=== PATIENT | male | born 1980 | race Caucasian/White ===

== ENCOUNTER 2024-12-09 14:43 | Outpatient (CLI) | payer OTHER, SELFPAY ==
--- NOTE | ~2024-12-09 | MR_ITS ---
EXAMINATION: MR brain/brain stem wo con DATE: 12/09/2024 15:24 INDICATION: Vision disturbance TECHNIQUE: Magnetic resonance imaging (MRI) of the brain and brainstem was performed without intraven ous contrast. Sequences included sagittal and axial T1-weighted SE, axial diffusion-weighted FS SE, a xial T2*-weighted GRE, axial T2-weighted FLAIR, and axial T2-weighted FSE. Apparent diffusion coeffic ient (ADC) maps were created. COMPARISON: None. FINDINGS: There are no areas of restricted diffusion to suggest acute infarction. No intracranial hemorrhage or abnormal intracranial mass lesion. Small nonspecific focus of increased T2 hyperintensity in the rig ht frontal periventricular white matter which is within normal limits. There are no intraparenchymal signal abnormalities seen on the other pulse sequences. The ventricles are symmetric and normal in si ze. There are no abnormal extra-axial fluid collections. Flow voids are seen in the cerebral arteries on the T2-weighted sequences consistent with their expected patency. Moderate mucosal thickening in the right maxillary sinus. Visualized orbits and soft tissues are unremarkable. IMPRESSION: 1. Normal for age brain. No acute intracranial process. Reviewed, dictated and finalized at location B.
== END 2024-12-09 14:44 | disposition home or self-care (01) ==
LOC: MICIMG 14:43
PROVIDERS: PCP Family Medicine; Visit Provider Family Medicine
DX: H53.9 Unspecified visual disturbance (principal)
CPT/HCPCS: 70551

== ENCOUNTER 2025-05-20 11:27 | Outpatient (CLI) | payer OTHER, SELFPAY ==
--- NOTE | ~2025-05-20 | CT_ITS ---
Exam: CT chest without contrast Clinical History: [Nodules. COPD. Emphysema. Dilated ascending aorta ] Comparison: [ None available] Technique: Multiple axial CT images of the chest without with IV contrast. Sagittal and coronal reformatted images were obtained. FINDINGS: Lungs and pleura: [ Tracheobronchial tree is patent. No pneumothorax. No pulmonary mass. Moderate centrilobular emphysema in the upper lobes.] There is an 8 mm pulmonary nodule in the right middle lobe along the minor fissure. There is a 4 mm pulmonary nodule in the right upper lobe. Mediastinum and pulmonary farhana: [ No mass or adenopathy.] Calcified nonenlarged right hilar lymph node. Axillary/intramammary and supraclavicular: [ No mass or adenopathy.] Heart and great vessels: [ Normal heart size.[ [ No pericardial effusion.] [ No aneurysm.] There are a few coronary artery calcifications. Chest Wall: [ Unremarkable.] Upper Abdomen: Fatty liver. Osseous structures: [ No acute fracture or destructive lesion.] [ Multilevel degenerative change in the visualized spine.] Additional findings: [ None of significance.] IMPRESSION: 1. There is an 8 mm pulmonary nodule in the right middle lobe along the minor fissure. A PET/CT and/or biopsy is recommended. 2. There is a 4 mm pulmonary nodule in the right upper lobe. A follow-up chest CT in 6 months is recommended. 3. Moderate centrilobular emphysema in the upper lobes. 4. Fatty liver. Reviewed, dictated and finalized at location Q. IMPRESSION: 1. There is an 8 mm pulmonary nodule in the right middle lobe along the minor f issure. A PET/CT and/or biopsy is recommended. 2. There is a 4 mm pulmonary nodule in the right upper lobe. A follow-up chest CT in 6 months is recommended. 3. Moderate centrilobular emphysema in the upper lobes. 4. Fatty liver.
== END 2025-05-20 11:28 | disposition home or self-care (01) ==
LOC: MICIMG 11:28
PROVIDERS: PCP Family Medicine; Visit Provider Family Medicine
DX: I77.810 Thoracic aortic ectasia (principal); J43.2 Centrilobular emphysema; K76.0 Fatty (change of) liver, not elsewhere classified; R91.8 Other nonspecific abnormal finding of lung field
CPT/HCPCS: 71250

== ENCOUNTER 2025-06-17 08:49 | Outpatient (CLI) | payer OTHER, SELFPAY ==
--- NOTE | ~2025-06-17 | PE_ITS ---
EXAMINATION: PET skull to mid thigh DATE: 06/17/2025 11:00 INDICATION: Pulmonary nodules TECHNIQUE: Blood glucose level was 86 mg/dL. 10.118 mCi of 18-fluorodeoxyglucose (18-FDG) was administered i.v. Low dose computed tomography (CT) images were acquired from the base of the brain to the proximal thighs for attenuation correction and anatomic localization. Positron emission tomography (PET) images were acquired in the same distribution beginning 55 minutes after injection. Images including fused PET/CT images were reconstructed in axial, coronal, and sagittal planes. Automated exposure control technique was employed. The dose- length product was 1341.66mGy-cm. COMPARISON: Chest CT dated 05/20/2025 FINDINGS: Head/neck: There is symmetric increased activity in the oral cavity, palatine tonsils, laryngeal muscles and ocular muscles without CT correlate, likely physiologic. No pathologically enlarged cervical lymphadenopathy or suspicious foci of increased FDG uptake in the visualized head or neck. Chest: Moderate emphysema with mild dependent atelectasis in both lungs. Calcified nodules in the superior segment of the right lower lobe and calcified right hilar lymph nodes consistent with old granulomatous disease. No evident FDG uptake associated with a 6-7 mm right middle lobe nodule. No other suspicious pulmonary nodules, pneumonia, pulmonary edema or pleural effusion. Heart size is normal. Thoracic aorta is normal in caliber. No pathologically enlarged or FDG avid thoracic lymphadenopathy. Abdomen/pelvis/proximal thighs: Prominent diffuse hepatic steatosis with focal sparing along the gallbladder fossa. Gallbladder, spleen, pancreas, bilateral adrenal glands and left kidney are normal. A few nonobstructing <2 mm stones in the right kidney. There are few scattered clonic diverticula without adjacent from trace stranding to suggest diverticulitis. No bowel obstruction. Small fat-containing umbilical hernia. Decompressed bladder is unremarkable. There is a subcentimeter focus of mild increased uptake with maximal SUV of 4.4 at the posterior aspect of the prostate slightly to the left of midline. Musculoskeletal: No suspicious lytic, blastic or abnormally FDG avid bone lesions. Likely physiologic mild uptake throughout the left teres minor muscle belly without radiologic correlate IMPRESSION: 1. Moderate emphysema with no abnormal FDG activity associated with a 6-7 mm right middle lobe pulmonary nodule. While reassuring this does not absolutely exclude malignancy and would recommend six-month follow-up low-dose noncontrast chest CT. 2. Nonspecific small focus of mild increased uptake at the left posterior prostate. Consider correlation with PSA level. 3. Diffuse hepatic steatosis. Reviewed, dictated and finalized at location A. IMPRESSION: 1. Moderate emphysema with no abnormal FDG activity associated with a 6-7 mm ri ght middle lobe pulmonary nodule. While reassuring this does not absolutely exc lude malignancy and would recommend six-month follow-up low-dose noncontrast ch est CT. 2. Nonspecific small focus of mild increased uptake at the left posterior prost ate. Consider correlation with PSA level. 3. Diffuse hepatic steatosis.
--- OUTSIDE RECORDS SUMMARY | 2025-06-17 09:17 | XMS_ITS | Clinical Summary ---
Author Organization [facility] Address [address] [place] [address] Phone Care Team Providers Care Laborer Hoisting Name Role Phone Unavailable Primary Care Provider Unavailabl e Social History Tobacco Use Types Packs/Day Years Used Date Smoking Tobacco: Never Assessed Sex and Gender Information Value Date Recorded Sex Assigned at Not on file Legal Sex Male 2:22 PM CDT Gender Identity Not on file Sexual Orientation Not on file Plan of Treatment Health Maintenance Due Date Last Done Comments DTAP/TDAP/TD VACCINES (1 - Tdap) 1998 HEPATITIS B VACCINES (1 of 3 - 19+ 3-dose series) 1998 COLORECTAL SCREENING 01/20/2024 Colorectal Cancer Screening 01/20/2024 FIT-DNA Q 3 years 01/20/2024 FIT/FOBT Q 1 year 01/20/2024 Flex Sig/CT Colonography Q 5 years 01/20/2024 INFLUENZA VACCINE (#1) 2025 HPV VACCINES Aged Out No longer eligi ble based on patient's age to complete this topic Insurance [facility] OPTIONS PPO [id number]
--- OUTSIDE RECORDS SUMMARY | 2025-06-17 09:17 | XMS_ITS | Encounter Summary ---
Author Organization [facility] Address [address] [place] [address] Phone Care Team Providers Care Prop Sawyer Name Role Phone Dashawn Montero MD Primary Care Provider Encounter Details Date Type Department Care Team (Latest Contact Info) Description 05/20/2025 Orders Only [facility] Scanning, Provider Social History Tobacco Use Types Packs/Day Years Used Date Smoking Tobacco: Former Cigarettes Smokeless Tobacco: Never Alcohol Use Standard Drinks/Week Comments Yes 0 (1 standard drink = 0.6 oz pur e alcohol) AUDIT-C Answer Date Recorded Frequency of Alcohol Consumption Not on file 01/01/2025 Q2: How many drinks containi ng alcohol do you have on a typical day when you are drinking? Patient does not drink Frequency of Binge Drinking Not on file 12/17 Personal Safety Answer Date Recorded Have you ever been in or are you currently in a harmful physical or emotional relationship or is someone making you feel afraid or unsafe? 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 Gender Identity Male 12/08/2020 10:13 AM CDT Sexual Orientation Straight 05/16/2021 11 :18 AM CDT 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 Not on file documented as of this encounter Plan of Treatment Not on file documented as of this encounter Procedures Procedure Name Priority Date/Time Associated Diagnosis Comments SCAN - RADIOLOGY/IMAGING 05/20/2025 documented in this encounter Results * SCAN - RADIOLOGY/IMAGING (05/20/2025) Anatomical Region Laterality Modality Other us Provider Scanning Final Result documented in this encounter Visit Diagnoses Not on filedocumented in this encounter Care Teams Prop Sawyer Relationship Specialty Start Date End Date Dashawn Montero MD PCP - General Family Medicine 03/08/18 documented as of this encounter
--- OUTSIDE RECORDS SUMMARY | 2025-06-17 09:17 | XMS_ITS | Clinical Summary ---
Author Organization [facility] Address [address] [place] [address] Care Team Providers Care Reconciliation Accountant Name Role Phone Dashawn Montero MD Primary Care Provider Allergies Active Allergy Reactions Criticality Noted Date Comments Diphenhydramine Swelling Medium 09/20/2017 Gabapentin Anaphylaxis High 07/03/2024 Penicillins Swelling Medium 11/16/2022 Theraflu Flu And Cold Swelling Medium 09/20/2017 Tramadol Other (See comments),Swelling Medium 10/30/2013 Throat swelling, tongue rolling, burning sensation Reaction: Other Medications cetirizine (ZyrTEC) 5 mg tablet Take by mouth daily Active pantoprazole DR (PROTONIX) 40 mg EC tablet 3 8 Active citalopram (CeleXA) 40 mg tablet 1 Active ARIPiprazole (ABILIFY) 2 mg tablet 1 Active celecoxib (CeleBREX) 200 mg capsule TAKE 1 CAPSULE(200 MG) BY MOUTH DAILY 30 capsule 1 1 Active Additional Information Patient not taking.Reported on 01/01/2025 pregabalin (Lyrica) 75 mg capsule Take 1 capsule (75 mg total) by mouth 2 (two) times a day 60 capsule 5 2 Active Additional Information Patient not taking.Reported on 01/01/2025 benzonatate (TESSALON) 200 mg capsule 2 (two) times a day as needed 2 Active buPROPion XL (WELLBUTRIN XL) 300 mg 24 hr tablet Take 1 tablet (300 mg total) by mouth daily 2 Active cephalexin (KEFLEX) 750 mg capsule 2 Active omeprazole (PriLOSEC) 40 mg capsule Take 1 capsule (40 mg total) by mouth daily Active amLODIPine (NORVASC) 5 mg tablet Take 1 tablet (5 mg total) by mouth daily 4 Active rosuvastatin (CRESTOR) 10 mg tablet Take 1 tablet (10 mg total) by mouth daily 4 Active acetaminophen (TYLENOL) 500 mg tablet Take 1 tablet (500 mg total) by mouth every 6 (six) hours as needed for pain 30 tablet 4 Active varenicline tartrate (CHANTIX) 1 mg tabletIndicatio ns:Smoking Cessation Take 1 tablet (1 mg total) by mouth 2 (two) times a day Take with full glass of water. 60 tablet 2 5 Active Additional Information Patient not taking.Reported on 01/01/2025 tiotropium-olod ateroL (Stiolto Respimat) 2.5-2.5 mcg/actuation inhaler Inhale 2 puffs daily 1 each 11 5 09/27/19 26 Active Additional Information Patient not taking.Reported on 01/01/2025 metFORMIN XR (GLUCOPHAGE XR) 500 mg 24 hr tablet Take 2 tablets (1,000 mg total) by mouth 2 (two) times a day 5 Active OneTouch Verio test strips strip daily 5 Active OneTouch Verio Flex meter misc as directed 5 Active OneTouch Delica Plus Lancet 33 gauge misc daily 5 Active Active Problems Problem Noted Date Diagnosed Date History of umbilical hernia repair 08/21/2024 Umbilical hernia without obstruction and without gangrene 07/26/2024 Rectus diastasis 07/26/2024 Chronic cough 07/03/2024 Knee pain 08/26/2016 Chest pain 10/30/2013 Inguinal pain 10/16/2013 Lumbago 02/02/2011 Arthralgia of hip 02/02/2011 Pain in pelvis 02/02/2011 Encounters Date Type Department Care Team Description 06/11/2025 Telephone [facility] Medicine Pulmonary [address] [facility] [address] [place] [address] [place] [address] Ursula Godinez RN 05/20/2025 Orders Only [facility] Scanning, Provider from Last 3 Months Immunizations Immunization Administration Dates Next Due Influenza, Trivalent, Cell C ulture-based MDCK, Preservative Free, Antibiotic Free, Intramuscular 07/03/2024 Surgical History Surgery Date Site/Laterality Comments HIP SURGERY 2010,2011,2013 LUMBAR SPINE SURGERY APPENDECTOMY FACET BLOCK LUMBAR SACRAL 1 LEVEL LEFT 05/19/2020 Bi lateral IR INJECTION ARTHROGRAM SI J OINT BILATERAL WITH GUIDANCE 03/16/2021 Bilateral FL UPPER GI AIR CONTRAST W KUB 05/17/2022 Left UMBILICAL HERNIA REPAIR 07/30/2024 Medical History Medical History Date Comments Encounter for other orthopedic aftercare Orthopedic aftercare - (Added by TW Conv) Depression Family History Medical History Relation Name Comments Dementia Father Heart disease Other 1 Family history of cardiac disorder - (Added by TW Conv) Diabetes Other 2 Family history of diabetes mellitus - (Added by TW Conv) Relation Name Status Comments Father Other 1 Other 2 Social History Tobacco Use Types Packs/Day Years Used Date Smoking Tobacco: Former Cigarettes Smokeless Tobacco: Never Tobacco Cessation:Counseling Given: Not Answered Alcohol Use Standard Drinks/Week Comments Yes 0 [...] on file Legal Sex Male 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 Gender Identity Male 12/08/2020 10:13 AM CDT Sexual Orientation Straight 05/16/2021 11 :18 AM CDT 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 Not on file Obstetrics History Last Filed Vital Signs Vital Sign Reading Time Taken Comments Blood Pressure 123/83 01/01/2025 2:12 PM CDT Pulse 90 01/01/2025 2:12 PM CDT Temperature 36.7 C (98 F) 01/01/2025 2:12 PM CDT Respiratory Rate 18 07/30/2024 5:10 PM SUPERVISOR PHOSPHORIC ACID Oxygen Saturation 98% 01/01/2025 2:12 PM CDT Inhaled Oxygen Concentration - - Weight 106.6 kg (235 lb) 01/01/2025 2:12 PM CDT Height 180.3 cm (5' 11) 01/01/2025 2:12 PM CDT Body Mass Index 32.78 01/01/2025 2:12 PM CDT Plan of Treatment Health Maintenance Due Date Last Done Comments Colon Cancer Screening-Colonoscopy 1979 Depression Screening 1979 Hepatitis C Screening 1979 DTaP/Tdap/Td Vaccine (1 - Tdap) 1990 Hepatitis B Screening 1997 Regular Well Visit/Exam 18-64 1997 Pneumococcal vaccine <65 (1 of 2 - PCV) 1998 Covid-19 Vaccine (3 - 2024-2 6 season) 2025 01/01/2021, 12/04/2020 Influenza Vaccine (#1) 2025 , 06/03/2020 HPV Vaccines Aged Out No longer eligi ble based on patient's age to complete this topic Procedures Procedure Name Priority Date/Time Associated Diagnosis Comments SCAN - RADIOLOGY/IMAGING 05/20/2025 from Last 3 Months Results * SCAN - RADIOLOGY/IMAGING (05/20/2025) Anatomical Region Laterality Modality Other Provider Scanning Final Result from Last 3 Months Insurance [address] [facility] [place] [phone] [employer] CLAIMS OFFICE [facility] CHOICE PLUS [facility] HMO/PPO Address: [address] [address] [place] [address] [facility] CHOICE PLUS [facility] HMO/PPO Address: [address] [address] [place] [address] [facility] CHOICE PLUS [facility] HMO/PPO Address: [place] [address] Care Teams Reconciliation Accountant Relationship Specialty Start Date End Date Dashawn Montero MD PCP - General Family Medicine 03/08/18
--- OUTSIDE RECORDS SUMMARY | 2025-06-17 09:17 | XMS_ITS | Clinical Summary ---
Author Organization [facility] Address [address] [place] [address] Care Team Providers Care State Comptroller Name Role Phone Dashawn Montero MD Primary Care Provider Source Comments [facility],non-owned Affiliates and Associated Physician Practices is amultiple site organization consisting of ambulatory clinics and hospital sitesin [place], [place], [place] and [place]. This disclosure is being madepursuant to the Care Everywhere program and may not contain all information available regarding this patient. Last updated 18.[facility] Allergies Active Allergy Reactions Criticality Noted Date Comments Theraflu Cold & Swelling 09/20/2017 Tramadol 10/30/2013 Throat swelling, tongue rolling, burning sensation Medications * Be aware that medications may not be up to date on this document. Alwaysverify current medications with the patient. pantoprazole EC (PROTONIX) 20 MG tablet Take 20 mg by mouth once daily. Active Cetirizine HCl (ZYRTEC PO) Take by mouth. Active finasteride (PROPECIA) 1 MG tablet Take 1 mg by mouth once daily Active benzonatate (TESSALON) 200 MG capsuleIndicati ons:Acute non-recurrent maxillary sinusitis Take 1 capsule by mouth 3 times daily as needed for Cough 30 capsule 12/04/2018 Active ondansetron, disintegrating, (Zofran ODT) 4 MG tablet Take 1 (one) tablet by mouth every 6 hours as needed for Nausea/Vomiti ng Allow tablet to dissolve on the tongue 10 tablet 07/13/2023 Active dicyclomine (Bentyl) 20 MG tabletIndicatio ns:spasms Take 1 (one) tablet by mouth 4 times daily Reasons: spasms 20 tablet 07/13/2023 Active Loperamide (Imodium) 2 MG tablet Take 1 (one) tablet by mouth 4 times daily as needed for Diarrhea 20 tablet 07/13/2023 Active Active Problems Problem Noted Date Diagnosed Date Chest pain 10/30/2013 Family History Medical History Relation Name Comments CAD (Coronary Artery Disease) Father in 50's-bypass Cancer Maternal Grandfather Cancer Maternal Grandmother Relation Name Status Comments Father Maternal Grandfather Maternal Grandmother Social History Tobacco Use Types Packs/Day Years Used Date Smoking Tobacco: Every Day Cigarettes 0.3 20 Smokeless Tobacco: Never Comments:vape, no longer cig arettes Alcohol Use Standard Drinks/Week Comments Yes 0 (1 standard drink = 0.6 oz pur e alcohol) occasionally-beers last night Sex and Gender Information Value Date Recorded Sex Assigned at Not on file 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 Gender Identity Not on file Sexual Orientation Not on file Last Filed Vital Signs Vital Sign Reading Time Taken Comments Blood Pressure 121/95 07/13/2023 5:32 AM CDT Pulse 84 07/12/2023 10:12 PM CDT Temperature 36.4 C (97.6 F) 07/12/2023 10:12 PM CDT Respiratory Rate 18 07/12/2023 10:12 PM CDT Oxygen Saturation 94% 07/13/2023 5:32 AM CDT Inhaled Oxygen Concentration - - Weight 98 kg (216 lb) 07/12/2023 10:12 PM CDT Height 180.3 cm (5' 11) 07/12/2023 10:12 PM CDT Body Mass Index 30.13 07/12/2023 10:12 PM CDT Plan of Treatment Health Maintenance Due Date Last Done Comments COLOGUARD (AGES 45-75) - COL ON CA SCREENING 1979 COLON MONITORING 1979 COLONOSCOPY - COLON CA SCREENING 1979 CT COLONOGRAPHY - COLON CA SCREENING 1979 Colorectal Cancer Screening 1979 FIT - COLON CA SCREENING 1979 FLEX SIG - COLON CA SCREENING 1979 LIPID TESTING 1979 HIV SCREENING 1994 HEPATITIS C SCREENING 01/14/1997 DTAP/TDAP/TD VACCINES (1 - Tdap) 1998 HEPATITIS B VACCINE (1 of 3 - 19+ 3-dose series) 1998 PNEUMOCOCCAL VACCINE (1 of 2 - PCV) 1998 DEPRESSION SCREENING 09/18/2024 COVID-19 VACCINE (1 - 2023-2 5 season) 2025 INFLUENZA VACCINE (#1) 2025 ZOSTER VACCINE (1 of 2) 2029 HIB VACCINE Aged Out No longer eligi ble based on patient's age to complete this topic HPV VACCINE Aged Out No longer eligi ble based on patient's age to complete this topic MENINGOCOCCAL (Group B) VACC INE SHARED DECISION-MAKING Aged Out No longer eligibl e based on patient's age to complete this topic MENINGOCOCCAL GROUPS A/C/Y/W VACCINE Aged Out No longer eligible b ased on patient's age to complete this topic Insurance Care Teams State Comptroller Relationship Specialty Start Date End Date Dashawn Montero MD [address] [place] [phone] PCP - General Family Medicine 10/30/13
== END 2025-06-17 08:50 | disposition home or self-care (01) ==
PROVIDERS: Visit Provider Family Medicine
DX: R91.8 Other nonspecific abnormal finding of lung field (principal); J43.9 Emphysema, unspecified
CPT/HCPCS: 78815; A9552